=== PATIENT | male | born 1985 | race American Indian/Alaskan Native ===

== ENCOUNTER 2016-11-01 22:21 | Emergency (ER) | payer MEDICAID ==
[2016-11-01 23:42] LABS: Urine Drugs of Abuse Note Disclamer
[2016-11-02 00:09] LABS: Bilirubin,Urine NEG (Negative); Blood,Urine NEG (Negative); Ketones,Urine NEG (Negative); Leukocyte Esterase,Urine NEG (Negative); Mucus,Urine 1+ /HPF; Nitrite,Urine NEG (Negative); Protein,Urine <15 mg/dL mg/dL (Negative)
--- NOTE | 2016-11-02 00:16 | Emergency Department Report ---
ED Psych HPI - General Stated Complaint: MH EVAL/SUICIDAL Time Seen by Provider: 11/01/16 23:57 Source: patient - History of Present Illness Initial Comments: 31 years old male wanted to be recognized as a female, comes today with a main complaint suicidal ideation and attempts, patient stated that she put a knife to her throat but she was unable to do it. She stated that she is just fed up with everything going on and she just want to kill herself. Patient denied any homicidal ideation no visual or auditory hallucination MD Complaint: suicidal ideation, feels depressed -: Gradual Associated Psychiatric Symptoms: depression, suicidal ideation If Self Harm: admits thoughts of, has plan, has acted on plan - Related Data Home Medications Medication Instructions Recorded Confirmed Last Taken Olanzapine [ZyPREXA] 20 mg PO QDAY 11/01/16 11/01/16 11/01/16 Allergies Allergy/AdvReac Type Severity Reaction Status Date / Time No Known Allergies Allergy Verified 11/01/16 23:11 ED Review of Systems ROS: Stated complaint: MH EVAL/SUICIDAL Other details as noted in HPI Comment: All other systems reviewed and negative Constitutional: denies: chills, fever Respiratory: denies: cough, shortness of breath Cardiovascular: denies: chest pain, palpitations Gastrointestinal: denies: nausea, vomiting ED Past Medical Hx - Past Medical History Previous Medical History?: Yes Additional medical history: 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 Absent: tenderness, meningismus - Respiratory Respiratory exam: Present: normal lung sounds bilaterally. Absent: respiratory distress, wheezes, rales - Cardiovascular Cardiovascular Exam: Present: regular rate, normal rhythm, normal heart sounds - GI/Abdominal GI/Abdominal exam: Present: soft. Absent: distended, tenderness, guarding, rebound - Back Exam Back exam: Present: normal inspection. Absent: CVA tenderness (R), CVA tenderness (L) - Neurological Exam Neurological exam: Present: alert, oriented X3, CN II-XII intact - Skin Skin exam: Present: warm, intact, normal color ED Course Vital Signs 11/01/16 23:07 Temperature 99.2 F Pulse Rate 89 Respiratory 18 Rate Blood Pressure 146/84 [Left] O2 Sat by Pulse 98 Oximetry ED Medical Decision Making - Lab Data Result diagrams: 11/02/16 00:13 11/02/16 00:13 Critical care attestation.: If time is entered above; I have spent that time in minutes in the direct care of this critically ill patient, excluding procedure time. ED Disposition Clinical Impression: Suicidal ideation Disposition: [id number]/TX-65 PSY HOSP/PSY UNIT Is pt being admited?: No Does the pt Need Aspirin: No Condition: Stable Referrals: PRIMARY CARE, [Primary Care Provider] - 3-5 Days
[2016-11-02 00:59] LABS: Basophils % (Auto) 0.5 % (0.0-1.8); Eosinophils % (Auto) 0.2 % (0.0-4.3); Hematocrit 31.6 % (35.5-45.6); Hemoglobin 10.4 gm/dl (11.8-15.2); Mean Corpuscular HGB Conc 33 % (32-34); Mean Corpuscular Hemoglobin 27 pg (28-32); Mean Corpuscular Volume 82 fl (84-94); Platelet Count 222 K/mm3 (140-440); Red Blood Count 3.86 M/mm3 (3.65-5.03); Red Cell Distribution Width 12.8 % (13.2-15.2); White Blood Count 2.8 K/mm3 (4.5-11.0)
[2016-11-02 01:04] LABS: BUN/Creatinine Ratio 21.25; Blood Urea Nitrogen 34 mg/dL (9-20); Carbon Dioxide 22 mmol/L (22-30); Potassium 5.7 mmol/L (3.6-5.0)
[2016-11-02 01:12] LABS: Glucose 535 mg/dL (75-100)
[2016-11-02 01:18] LABS: Anion Gap 24 mmol/L; Chloride > 139 mmol/L (98-107); Sodium > 179 mmol/L (137-145)
[2016-11-02 07:37] LABS: Anion Gap 17 mmol/L; BUN/Creatinine Ratio 9.09; Blood Urea Nitrogen 10 mg/dL (9-20); Calcium 8.9 mg/dL (8.4-10.2); Carbon Dioxide 25 mmol/L (22-30); Chloride 99.7 mmol/L (98-107); Glucose 91 mg/dL (75-100); Potassium 4.1 mmol/L (3.6-5.0); Sodium 138 mmol/L (137-145)
--- NOTE | 2016-11-02 16:51 | Consultation ---
History of Present Illness - Reason for Consult Consult date: 11/02/16 Reason for consult: psychiatric evaluation - Chief Complaint Chief complaint: 31 year old transgendered male brought in by [facility] police due to suicidal threat. Information was obtained from the record. The patient had Zyprexa 20mg at 11:10am and was drowsy on interview. Per the record, pt has history of unspecified mental illness with prior inpatient hospitalization at [facility] 2017. Pt has been declared disabled due to his mental health and resides in a transitional living program. He reports becoming suicidal without clear precipitant stressor 11/01. He states that he is "just fed up" with "so many things going wrong" in his life. Pt admits putting a knife to his throat with the intention of killing himself and continues to endorse suicidal ideation. Per the mental health diving board assembler, he maintained suicidal ideation. 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) - past Psychiatric treatment and history psychiatric treatment history: history of depressive symptoms Patient is transgendered Mental Status Exam - Vital signs Last Vital Signs Temp 98.3 F 11/02/16 10:57 Pulse 84 11/02/16 10:57 Resp 18 11/02/16 10:57 BP 124/84 11/02/16 10:57 Pulse Ox 100 11/02/16 10:57 - Exam Narrative exam: patient drowsy reportedly suicidal unable to obtain additional information Results Result Diagrams: 11/02/16 00:13 11/02/16 06:56 Abnormal lab results 11/02/16 11/02/16 11/02/16 Range/Units 00:13 00:13 00:13 WBC 2.8 L (4.5-11.0) K/mm3 Hgb 10.4 L (11.8-15.2) gm/dl Hct 31.6 L (35.5-45.6) % MCV 82 L (84-94) fl MCH 27 L (28-32) pg RDW 12.8 L (13.2-15.2) % Lymph % (Auto) 43.2 H (13.4-35.0) % Seg Neutrophils # 1.4 L (1.8-7.7) K/mm3 Sodium > 179 H* (137-145) mmol/L Potassium 5.7 H (3.6-5.0) mmol/L Chloride > 139 H (98-107) mmol/L BUN 34 H (9-20) mg/dL Creatinine 1.6 H (0.8-1.5) mg/dL Glucose 535 H* (75-100) mg/dL Calcium 11.0 H (8.4-10.2) mg/dL Total Creatine Kinase 344 H (55-170) units/L HCG, Quant (0-1) mIU/mL Salicylates (2.8-20.0) mg/dL 11/02/16 11/02/16 Range/Units 00:13 00:13 WBC (4.5-11.0) K/mm3 Hgb (11.8-15.2) gm/dl Hct (35.5-45.6) % MCV (84-94) fl MCH (28-32) pg RDW (13.2-15.2) % Lymph % (Auto) (13.4-35.0) % Seg Neutrophils # (1.8-7.7) K/mm3 Sodium (137-145) mmol/L Potassium (3.6-5.0) mmol/L Chloride (98-107) mmol/L BUN (9-20) mg/dL Creatinine (0.8-1.5) mg/dL Glucose (75-100) mg/dL Calcium (8.4-10.2) mg/dL Total Creatine Kinase (55-170) units/L HCG, Quant < 2 H (0-1) mIU/mL Salicylates < 0.3 L (2.8-20.0) mg/dL All other labs normal. Assessment and Plan Assessment and plan: Impression: suicidal ideation ddx: personality disorder, major depressive disorder, gender dysphoria, bipolar disorder Recommendation: 1013 and transfer to inpatient psychiatric facility His home medication was resumed by the ER provider It was changed to zyprexa 20mg to hs instead of am due to sedating side effect. Consider an antidepressant Plan to gather information to determine bipolarity vs unipolar depression
--- NOTE | 2016-11-03 13:07 | Progress Note ---
Subjective - Reason for Consult Consult date: 11/03/16 Reason for consult: Psychiatry Follow-up - Chief Complaint Chief complaint: "I want help" 31 year old transgendered male brought in by [facility] police due to suicidal threat. Today patient is calm and cooperative during the assessment. He stated that he has been experiencing "up and down mood swings" for a very long time. He stated that he feel that people don't listen to him because he live his life as a woman. He stated that his childhood was "mess." He stated that he struggles with starting sleep sometimes, but eventually will fall asleep. He denies feeling helpless and hopeless, but admitted to having low self self esteem. He stated that this is the first time he wanted to commit suicide, but could not explain why (stressors). He denies SI/HI's and AVH's. He denies a poor appetite. Patient has a history of unspecified mental illness with prior inpatient hospitalization at [facility] 2017. Mental Status Exam - Vital signs Last Vital Signs Temp 98 F 11/03/16 06:55 Pulse 74 11/03/16 06:55 Resp 18 11/02/16 22:00 BP 121/66 11/03/16 06:55 Pulse Ox 98 11/02/16 22:00 - Exam Narrative exam: MSE: Appearance: calm, cooperative Behavior: regular eye contact Speech: regular rate and tone Mood: "somewhat okay" Affect: flat Thought Process: circumstantial Thought Content: denies SI/HI's and AVH's Motor Activity: lying bed Cognition: A/O x3 Insight: variable Judgment: variable Assessment and Plan Impression: Unspecified Mood DO with suicidal ideation. Today patient is calm and cooperative during the assessment. Psychosocial stressors that he cannot explain. Patient isn't drowsy today on assessment. Recommendation: Continue 1013 and transfer to [facility] today.
[2016-11-03 13:31] VITALS: BP 111/75
== END 2016-11-03 14:13 ==
LOC: EEVIPCON 22:21 → ED 22:21
DX: R45.851 Suicidal ideations (principal)
CPT/HCPCS: 36415; 80048; 80307; 81001; 82550; 82962; 84702; 85025; 99285; G0480; 80320